=== PATIENT | female | born 1955 | race Caucasian/White ===

== ENCOUNTER 2016-12-25 11:00 | Emergency (ER) | payer MEDICARE, OTHER ==
[2016-12-25] MEDS ORDERED: ONDANSETRON 4 MG/2 ML VIAL IVP STA ×2 (11:24→13:37)
[2016-12-25] MEDS ORDERED: HYDROmorphone 1 MG/ML SYRINGE IVP STA (11:24)
[2016-12-25] MEDS ORDERED: SODIUM CHLORIDE 0.9% 1,000 ML IV ONE ×2 (11:24→12:30)
--- NOTE | 2016-12-25 11:28 | ED Physician Documentation ---
PD HPI ABD PAIN - Stated complaint Stated Complaint: V/D - Chief complaint Chief Complaint: Abd Pain - History obtained from History obtained from: Patient - History of Present Illness Timing - onset: How many days ago (4) Timing - duration: Days (4) Timing - details: Still present Quality: Cramping Location: Periumbilical Worsened by: Eating Associated symptoms: Nausea, Vomiting, Diarrhea. No: Dysuria Similar symptoms before: Treatment (She reports history of similar symptoms about 1 year ago, treated with IV fluids.) - Treatment prior to arrival Treatment prior to arrival: She took Imodium this morning. - Additional information Additional information: The patient is a 61-year-old female who presents with vomiting, diarrhea, and abdominal pain that have been waxing and waning for the past 4 days. Her symptoms are worse with food. She has had 4 episodes of vomiting this morning. She has felt warm and chilled, but is uncertain of fever. She denies cough, chest pain, or dysuria. She has a history of similar symptoms intermittently in the past, the last time being about 1 year ago, when she was treated with IV fluids. She took an Imodium this morning, without relief. Past medical history is significant for right hip surgery for bursitis on November 09, 2016. She is status post cholecystectomy, appendectomy, and gastric surgery. She denies any recent antibiotic treatment. She denies any recent travel. No other family members are ill. Review of Systems Constitutional: reports: Chills Nose: denies: Congestion Throat: denies: Sore throat Cardiac: denies: Chest pain / pressure, Palpitations Respiratory: denies: Dyspnea, Cough GI: reports: Abdominal Pain, Nausea, Vomiting, Diarrhea : denies: Dysuria Skin: denies: Rash Musculoskeletal: denies: Back pain Neurologic: denies: Focal weakness, Numbness, Headache PD PAST MEDICAL HISTORY - Past Medical History Past Medical History: Yes Cardiovascular: Hypertension, High cholesterol Musculoskeletal: Osteoarthritis - Past Surgical History Past Surgical History: Yes General: Cholecystectomy, Appendectomy, Bowel surgery, Gastric surgery /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: Tubal ligation, Hysterectomy, Oophrectomy Cardiovascular: Vascular surgery - Present Medications Home Medications: Ambulatory Orders Medication Instructions Recorded Confirmed Simvastatin 20 mg PO DAILY 07/14/13 10/06/15 Hydrocodone/Acetaminophen [[place] 1 each PO DAILY 12/25/16 12/25/16 5-325 mg Tablet] Promethazine [Phenergan] 25 - 50 mg PO Q6H PRN #10 tab 12/25/16 - Allergies Allergies/Adverse Reactions: Allergies Allergy/AdvReac Type Severity Reaction Status Date / Time hydrocodone AdvReac Severe Nausea Verified 12/25/16 11:09 erythromycin base AdvReac Rash Verified 12/25/16 11:09 guaifenesin [From Entex LQ] AdvReac Rash Verified 12/25/16 11:09 phenylephrine HCl * AdvReac Rash Verified 12/25/16 11:09 [From Entex LQ] - Social History Does the pt smoke?: No Smoking Status: Never smoker Does the pt drink ETOH?: No Does the pt have substance abuse?: No - Immunizations Immunizations are current?: Yes - POLST Patient has POLST: No PD ED PE NORMAL - Vitals Vital signs reviewed: Yes (Systolic hypertension) - General General: Alert and oriented X 3, Other (Obese) - HEENT HEENT: Atraumatic, EOMI, Pharynx benign - Neck Neck: Supple, no meningeal sign, No adenopathy, No JVD - Cardiac Cardiac: RRR, No murmur - Respiratory Respiratory: No respiratory distress, Clear bilaterally - Abdomen Abdomen: Normal bowel sounds, Soft, Other (Mild generalized abdominal discomfort to palpation, without focal tenderness, rebound, or guarding.) - Back Back: No CVA TTP - Derm Derm: No rash - Extremities Extremities: No edema, No calf tenderness / cord - Neuro Neuro: Alert and oriented X 3, No motor deficit, Normal speech Results - Vitals Vitals: Oxygen O2 Source Room air - Labs Labs: Laboratory Tests 12/25/16 12/25/16 12/25/16 11:29 11:29 11:40 WBC 10.9 H RBC 4.53 Hgb 13.7 Hct 40.6 MCV 89.6 MCH 30.2 MCHC 33.7 RDW 13.8 Plt Count 310 MPV 7.9 Neut # 8.5 H Lymph # 1.8 [place] # 0.5 Eos # 0.0 Baso # 0.0 Absolute Nucleated RBC 0.01 Nucleated RBCs 0.0 Sodium 138 Potassium 3.5 Chloride 105 Carbon Dioxide 23 Anion Gap 10.0 BUN 21 H Creatinine 1.0 Estimated GFR (MDRD) 57 L Glucose 114 H Calcium 10.6 H Total Bilirubin 0.5 AST 28 ALT 34 Alkaline Phosphatase 66 Total Protein 8.1 Albumin 4.7 Globulin 3.4 Albumin/Globulin Ratio 1.4 Lipase 28 Urine Color YELLOW Urine Clarity CLEAR Urine pH 8.0 H Ur Specific [place] 1.010 Urine Protein NEGATIVE Urine Glucose (UA) NEGATIVE Urine Ketones NEGATIVE Urine Occult Blood NEGATIVE Urine Nitrite NEGATIVE Urine Bilirubin NEGATIVE Urine Urobilinogen 0.2 (NORMAL) Ur Leukocyte Esterase NEGATIVE Ur Microscopic Review NOT INDICATED Urine Culture Comments NOT INDICATED PD MEDICAL DECISION MAKING - ED course Complexity details: reviewed old records, reviewed results, re-evaluated patient , considered differential, d/w patient, d/w family ED course: The patient's presentation is significant for vomiting and diarrhea with dehydration. The underlying cause is uncertain, but gastroenteritis is certainly a consideration. Her presentation does not suggest an acute abdomen, and she is nontoxic appearing. Treatment in the emergency department included administration of normal saline 2 L IV, Zofran 4 mg IV 2, and hydromorphone 1 mg IV. Following this treatment she demonstrates ability to drink fluids without recurrent nausea. Repeat examination reveals a benign abdomen. I discussed with her and her the expected course of illness, symptomatic treatment and outpatient follow-up, as well as potentially worrisome signs or symptoms that should prompt reevaluation in the emergency department. She is being discharged with a prescription for Phenergan. Departure - Departure Disposition: 01 Home, Self Care Clinical Impression: Dehydration Vomiting Qualifiers: Vomiting type: unspecified Vomiting Intractability: non-intractable Nausea presence: with nausea Qualified Code(s): R11.2 - Nausea with vomiting, unspecified Diarrhea Qualifiers: Diarrhea type: unspecified type Qualified Code(s): R19.7 - Diarrhea, unspecified Condition: Stable Instructions: ED Dehydration, ED Diet Vomiting Diarrhea Follow-Up: Natalio Glez MD [Primary Care Provider] - Prescriptions: Promethazine [Phenergan] 25 - 50 mg PO Q6H PRN #10 tab PRN Reason: Nausea / Vomiting Comments: Drink plenty of fluids. Use Phenergan as prescribed if needed for nausea. Follow-up with your primary physician within 1 week. Call to schedule appointment. Return to the emergency department if you develop increasing abdominal pain, persistent vomiting, recurrent dehydration, or otherwise worsening symptoms. Discharge Date/Time: 12/25/16 14:56
[2016-12-25] MEDS ORDERED: ONDANSETRON 4 MG/2 ML VIAL ONE ×2 (11:35→13:55)
[2016-12-25] MEDS ORDERED: HYDROmorphone 1 MG/ML SYRINGE ONE (11:35)
[2016-12-25 11:41] LABS: BASOPHILS % (AUTO) 0.4 %; EOSINOPHILS % (AUTO) 0.2 %; HCT - HEMATOCRIT 40.6 % (37.0-47.0); HGB - HEMOGLOBIN 13.7 g/dL (12.0-16.0); LYMPHOCYTES # (AUTO) 1.8 10^3/uL (1.5-3.5); LYMPHOCYTES % (AUTO) 16.7 %; MEAN CORPUSCULAR HEMOGLOBIN 30.2 pg (27.0-31.0); MEAN CORPUSCULAR HGB CONC 33.7 g/dL (32.0-36.0); MEAN CORPUSCULAR VOLUME 89.6 fL (81.0-99.0); MEAN PLATELET VOLUME 7.9 fL (7.9-10.8); MONOCYTES # (AUTO) 0.5 10^3/uL (0.0-1.0); MONOCYTES % (AUTO) 4.3 %; NEUTROPHILS # (AUTO) 8.5 10^3/uL (1.5-6.6); NEUTROPHILS % (AUTO) 78.4 %; RED BLOOD COUNT 4.53 10^6/uL (4.20-5.40); RED CELL DISTRIBUTION WIDTH 13.8 % (12.0-15.0); UNCORRECTED WHITE BLOOD COUNT 10.9 x10^3/uL; WHITE BLOOD COUNT 10.9 x10^3/uL (4.8-10.8)
[2016-12-25 11:54] LABS: ALBUMIN/GLOBULIN RATIO 1.4 (1.0-2.2); BILIRUBIN,TOTAL 0.5 mg/dL (0.2-1.0); CALCIUM 10.6 mg/dL (8.5-10.3); POTASSIUM 3.5 mmol/L (3.5-5.0); TOTAL PROTEIN 8.1 g/dL (6.7-8.2)
[2016-12-25 11:57] LABS: BILIRUBIN,URINE NEGATIVE (NEGATIVE)
[2016-12-25 11:58] LABS: UA CHARGE (STRIP ONLY) YES; UR CULTURE IF IND NOT INDICATED
[2016-12-25 14:56] VITALS: BP 138/79
== END 2016-12-25 14:56 | disposition home or self-care (01) ==
LOC: ED 11:00
DX: E86.0 Dehydration (principal); R11.2 Nausea with vomiting, unspecified; R19.7 Diarrhea, unspecified; I10 Essential (primary) hypertension; E78.00 Pure hypercholesterolemia, unspecified; M19.90 Unspecified osteoarthritis, unspecified site
CPT/HCPCS: 36415; 80053; 81003; 83690; 85025; 96374; 96375; 96376; 99283; 99284; J1170; 81001; 87086

== ENCOUNTER 2017-02-17 09:48 | Outpatient (CLI) | payer MEDICARE, OTHER ==
--- NOTE | 2017-02-17 16:39 | MRI Report ---
EXAM: MRI SACRUM/SI JOINTS WITHOUT CONTRAST EXAM DATE: 02/17/2017 11:13 AM. CLINICAL HISTORY: Chronic low back pain. Chronic sacral pain. History of arthritis. Arthralgia, myalg ia. COMPARISON: Abdominopelvic CT 12/16/2014. TECHNIQUE: Multiplanar, multisequence T1-weighted and fluid-sensitive sequences of the sacrum/sacroil iac joints without contrast. Other: None. FINDINGS: Bones: There is normal alignment of the sacrum and coccyx. No fractures or subluxations. Sacroiliac Joints: Small focus of subcortical edema and subcortical sclerosis at the anterior margin of the left sacroiliac joint. Otherwise normal symmetric appearance of the sacroiliac joints. No join t effusion. No erosive change. Musculature: No edema or fatty atrophy. Neurologic Structures: Sacral neural foramina appear patent. Lower lumbar degenerative facet arthropa thy. Pelvic Cavity: Visualized lower abdominal and upper pelvic structures unremarkable. Other: Unremarkable. IMPRESSION: 1. Minimal degenerative change at the anterior margin of the left sacroiliac joint. 2. Lower lumbar degenerative facet arthropathy partially visualized. [facility] MUSCULOSKELETAL RADIOLOGY SECTION Referring Provider Line: [phone] SITE ID: [id number]
== END 2017-02-17 09:49 | disposition home or self-care (01) ==
LOC: DI 09:48
PROVIDERS: ATTEND Internal Medicine Rheumatology
DX: M47.898 Other spondylosis, sacral and sacrococcygeal region (principal); M47.896 Other spondylosis, lumbar region
CPT/HCPCS: 72195

== ENCOUNTER 2017-04-02 18:30 | Outpatient (CLI) | payer MEDICARE, OTHER | END 2017-04-02 18:31 | disposition critical access hospital (66) | LOC: EMS 18:30 | PROVIDERS: ATTEND Surgery | DX: N95.1 Menopausal and female climacteric states (principal); R06.4 Hyperventilation | CPT/HCPCS: A0425; A0427 ==

== ENCOUNTER 2017-04-02 19:02 | Emergency (ER) | payer MEDICARE, OTHER ==
[2017-04-02 19:37] LABS: BASOPHILS # (AUTO) 0.1 10^3/uL (0.0-0.1); BASOPHILS % (AUTO) 1.3 %; EOSINOPHILS # (AUTO) 0.2 10^3/uL (0.0-0.7); EOSINOPHILS % (AUTO) 1.9 %; HCT - HEMATOCRIT 39.9 % (37.0-47.0); HGB - HEMOGLOBIN 13.3 g/dL (12.0-16.0); LYMPHOCYTES # (AUTO) 2.8 10^3/uL (1.5-3.5); LYMPHOCYTES % (AUTO) 30.4 %; MEAN CORPUSCULAR HEMOGLOBIN 29.7 pg (27.0-31.0); MEAN CORPUSCULAR HGB CONC 33.3 g/dL (32.0-36.0); MEAN CORPUSCULAR VOLUME 89.1 fL (81.0-99.0); MEAN PLATELET VOLUME 7.5 fL (7.9-10.8); MONOCYTES # (AUTO) 0.5 10^3/uL (0.0-1.0); MONOCYTES % (AUTO) 5.4 %; NEUTROPHILS # (AUTO) 5.5 10^3/uL (1.5-6.6); RED BLOOD COUNT 4.47 10^6/uL (4.20-5.40); UNCORRECTED WHITE BLOOD COUNT 9.1 x10^3/uL; WHITE BLOOD COUNT 9.1 x10^3/uL (4.8-10.8)
[2017-04-02 19:47] LABS: ALBUMIN/GLOBULIN RATIO 1.3 (1.0-2.2); BILIRUBIN,TOTAL 0.4 mg/dL (0.2-1.0); CALCIUM 9.7 mg/dL (8.5-10.3); CREATININE 0.9 mg/dL (0.4-1.0); POTASSIUM 3.5 mmol/L (3.5-5.0); TOTAL PROTEIN 7.8 g/dL (6.7-8.2)
--- NOTE | 2017-04-02 19:53 | XRAY Preliminary Report ---
Exam: XR CHEST 1 VIEW IMPRESSION: No acute intrathoracic plain film abnormality. [facility] SITE ID: [id number]
--- NOTE | 2017-04-02 19:55 | XRAY Report ---
EXAM: CHEST RADIOGRAPHY EXAM DATE: 04/02/2017 07:29 PM. CLINICAL HISTORY: Chest pain. COMPARISON: None. TECHNIQUE: 1 view. FINDINGS: Lungs/Pleura: No focal opacities evident. No pleural effusion. No pneumothorax. Mediastinum: Within exam limitations, the cardiomediastinal contour is normal. Other: None. IMPRESSION: No acute intrathoracic plain film abnormality. [facility] Referring Provider Line: [phone] SITE ID: [id number]
[2017-04-02] MEDS ORDERED: MAG HYDROX/AL HYDROX/SIMETH 30 ML UDC PO STA (20:23)
[2017-04-02] MEDS ORDERED: LIDOCAINE VISCOUS 2% 15 ML UDC MM STA (20:23)
[2017-04-02] MEDS ORDERED: FAMOTIDINE 20 MG/2 ML VIAL IVP STA (20:23)
[2017-04-02] MEDS ORDERED: MAG HYDROX/AL HYDROX/SIMETH 30 ML UDC ONE (20:34)
[2017-04-02] MEDS ORDERED: LIDOCAINE VISCOUS 2% 15 ML UDC MM ONE (20:34)
[2017-04-02] MEDS ORDERED: FAMOTIDINE 20 MG/2 ML VIAL ONE (20:34)
[2017-04-02 20:49] VITALS: BP 134/79
--- NOTE | 2017-04-02 21:20 | ED Physician Documentation ---
PD HPI CHEST PAIN - Stated complaint Stated Complaint: CP, HOT FLASHES, TINGLING FINGERS - Chief complaint Chief Complaint: General - History obtained from History obtained from: Patient - History of Present Illness Timing - onset: How many hours ago (6) Timing - onset during: Rest Timing - details: Gradual onset, Still present Quality: Pressure, Sharp Location: Substernal Radiation: Left upper extremity Improved by: Nothing Worsened by: Eating Associated symptoms: Diaphoresis. No: Shortness of air, Feeling faint / dizzy, General Weakness, Palpitations Similar symptoms before: Work up / diagnostics Recently seen: Not recently seen - Additional information Additional information: Patient is a 61 year old female with no significant past medical history who is presenting to the emergency department for substernal chest pain and dizziness. patient states that it started about 6 hours ago at rest. it is sub-sternal in nature and leaves an "acidy" flavor in her mouth. Patient denies any exertional component to her pain and states that it is fairly constant. Patient states that she is also getting hot flashes around the same time. Review of Systems Constitutional: reports: Sweats. denies: Fever, Chills Eyes: denies: Decreased vision, Photophobia Ears: denies: Ear pain, Drainage/discharge Nose: denies: Rhinorrhea / runny nose, Congestion Throat: denies: Sore throat Cardiac: reports: Chest pain / pressure. denies: Palpitations, Pedal edema Respiratory: denies: Dyspnea, Cough, Wheezing GI: denies: Nausea, Vomiting, Constipation, Diarrhea : denies: Dysuria, Frequency, Hesitancy Skin: denies: Rash, Lesions Musculoskeletal: denies: Neck pain, Back pain, Extremity pain, Joint pain Neurologic: denies: Generalized weakness, Focal weakness, Numbness Immunocompromised: denies: Immunocompromised PD PAST MEDICAL HISTORY - Past Medical History Past Medical History: Yes Cardiovascular: Hypertension, High cholesterol Musculoskeletal: Osteoarthritis - Past Surgical History Past Surgical History: Yes General: Cholecystectomy, Appendectomy, Bowel surgery, Gastric surgery /[employer]TE[employer]: Tubal ligation, Hysterectomy, Oophrectomy Cardiovascular: Vascular surgery - Present Medications Home Medications: Ambulatory Orders Medication Instructions Recorded Confirmed Simvastatin 20 mg PO DAILY 07/14/13 10/06/15 Venlafaxine ER [Effexor ER] 2 tab PO DAILY 04/02/17 04/02/17 - Allergies Allergies/Adverse Reactions: Allergies Allergy/AdvReac Type Severity Reaction Status Date / Time hydrocodone AdvReac Severe Nausea Verified 12/25/16 11:09 erythromycin base AdvReac Rash Verified 12/25/16 11:09 guaifenesin [From Entex LQ] AdvReac Rash Verified 12/25/16 11:09 phenylephrine HCl * AdvReac Rash Verified 12/25/16 11:09 [From Entex LQ] - Social History Does the pt smoke?: No Smoking Status: Never smoker Does the pt drink ETOH?: No Does the pt have substance abuse?: No - Immunizations Immunizations are current?: Yes - POLST Patient has POLST: No PD ED PE NORMAL - Vitals Vital signs reviewed: Yes - General General: Alert and oriented X 3, No acute distress, Well developed/nourished - HEENT HEENT: Atraumatic, PERRL, Moist mucous membranes, Pharynx benign - Neck Neck: No JVD - Cardiac Cardiac: RRR, No murmur, No gallop, No rub - Respiratory Respiratory: No respiratory distress, Clear bilaterally - Abdomen Abdomen: Soft, Non tender, Non distended - Derm Derm: Normal color, Warm and dry, No rash - Extremities Extremities: No deformity, Normal ROM s pain, No edema - Neuro Neuro: Alert and oriented X 3, No motor deficit, No sensory deficit, Normal speech Eye Opening: Spontaneous Motor: Obeys Commands Verbal: Oriented GCS Score: 15 - Psych Psych: Normal mood PD ED PE EXPANDED - General General: Anxious Results - Vitals Vitals: Vital Signs - 24 hr 04/02/17 04/02/17 04/02/17 19:04 20:48 21:45 Temperature 35.9 C L Heart Rate 70 65 76 Respiratory 20 18 18 Rate Blood Pressure 144/99 H 134/79 H O2 Saturation 100 96 98 Oxygen O2 Source Room air - EKG (time done) 1910 Rate: Rate (enter#) (67) Rhythm: NSR Reynolds: Normal Intervals: Normal ID QRS: Normal Ischemia: Normal ST segments 2100 Rate: Rate (enter#) (63) Rhythm: NSR Reynolds: Normal Intervals: Normal ID QRS: Normal Ischemia: Normal ST segments Compare to prior EKG: Unchanged from prior EKG - Labs Labs: Laboratory Tests 04/02/17 04/02/17 04/02/17 19:28 19:28 19:28 WBC 9.1 RBC 4.47 Hgb 13.3 Hct 39.9 MCV 89.1 MCH 29.7 MCHC 33.3 RDW 14.0 Plt Count 348 MPV 7.5 L Neut # 5.5 Lymph # 2.8 [place] # 0.5 Eos # 0.2 Baso # 0.1 Absolute Nucleated RBC 0.00 Nucleated RBC % 0.0 Sodium 139 Potassium 3.5 Chloride 105 Carbon Dioxide 22 Anion Gap 12.0 BUN 27 H Creatinine 0.9 Estimated GFR (MDRD) 64 L Glucose 98 Calcium 9.7 Total Bilirubin 0.4 AST 25 ALT 27 Alkaline Phosphatase 65 Troponin I < 0.04 Total Protein 7.8 Albumin 4.4 Globulin 3.4 Albumin/Globulin Ratio 1.3 Lipase 33 04/02/17 21:05 WBC RBC Hgb Hct MCV MCH MCHC RDW Plt Count MPV Neut # Lymph # [place] # Eos # Baso # Absolute Nucleated RBC Nucleated RBC % Sodium Potassium Chloride Carbon Dioxide Anion Gap BUN Creatinine Estimated GFR (MDRD) Glucose Calcium Total Bilirubin AST ALT Alkaline Phosphatase Troponin I < 0.04 Total Protein Albumin Globulin Albumin/Globulin Ratio Lipase - Rads (name of study) chest x-ray Radiology: Final report received (no acute abnormality) PD MEDICAL DECISION MAKING - ED course Complexity details: reviewed old records, reviewed results, re-evaluated patient , considered differential, d/w patient, d/w family ED course: Patient was seen and examined at bedside. ekg was performed and was normal sinus. IV access was gained and labs were drawn. chest x-ray was performed and was within normal limits. Patient was treated with pepcid, maalox and viscous lidocaine with moderate relief. Repeat ekg and troponin were within normal limits. patient had a HEART score of II and PERC of 0. patient was low risk and was appropriate for discharge with outpatient follow up. Departure - Departure Disposition: 01 Home, Self Care Clinical Impression: GERD (gastroesophageal reflux disease) Condition: Good Instructions: GERD Dc Follow-Up: primary,care provider [Other] - Within 3 Days Comments: Your diagnostics today were within normal limits. It is less likely that your symptoms are cardiac in nature and more likely to be due to acid reflux. That being said it is only a snap shot in time and you should still follow up with your doctor for a stress test and possibly an echo. You should refrain from fried, fatty, spicy or acidic foods. You should not eat and lie down, or eat right before bed. You should try to eat smaller meals. You may return to the emergency department at any time for new, worsening or uncontrollable symptoms. Discharge Date/Time: 04/02/17 21:41
== END 2017-04-02 21:41 | disposition home or self-care (01) ==
LOC: EDUNIT# → ED 19:02
DX: K21.9 Gastro-esophageal reflux disease without esophagitis (principal); I10 Essential (primary) hypertension; E78.00 Pure hypercholesterolemia, unspecified
CPT/HCPCS: 36415; 71010; 80053; 83690; 84484; 85025; 93005; 96374; 99284; A9270